=== PATIENT | female | born 1985 | race African-American/Black ===

== ENCOUNTER 2017-04-05 07:14 | Emergency (ER) | payer OTHER, MEDICAID ==
[~2017-04-05] VITALS: Ht 167.6 cm; Wt 85.0 kg
[~2017-04-05 07:14] MED LIST: ALBU6.7H INH; CEPH500C3 PO; PRENCAP6 PO; ZOFR4TAB3 SL
[2017-04-05 07:15] VITALS: BP 155/87; PULSE 89; RESP 14; TEMP 98.2; O2SAT 96
[2017-04-05] MEDS ORDERED: predniSONE 20 MG TAB PO ONE (08:15)
[2017-04-05] MEDS ORDERED: METHOCARBAMOL 500 MG TAB PO ONE (08:15)
[2017-04-05] MEDS ORDERED: RESP: ALBUTEROL 2.5 MG/IPRATROPIUM 0.5 MG NEB (SCH) INH ONE (08:15)
[2017-04-05] MEDS ORDERED: IBUPROFEN 800 MG TAB PO ONE (08:15)
[2017-04-05] MEDS ORDERED: BENZ100 PO (08:23)
[2017-04-05] MEDS ORDERED: ROBA500T PO (08:23)
[2017-04-05] MEDS ORDERED: VENTAER INH (08:23)
[2017-04-05] MEDS ORDERED: PRED-503 PO (08:23)
[2017-04-05] MEDS ORDERED: IBUP1TAB7 PO (08:23)
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
== END 2017-04-05 08:52 | disposition home or self-care (01) ==
LOC: NEPD 07:14
DX: B34.9 Viral infection, unspecified (principal); J45.901 Unspecified asthma with (acute) exacerbation; S16.1XXA Strain of muscle, fascia and tendon at neck level, initial encounter; S39.012A Strain of muscle, fascia and tendon of lower back, initial encounter; R51 Headache; V49.40XA Driver injured in collision with unspecified motor vehicles in traffic accident, initial encounter
CPT/HCPCS: 87081; 87804; 87880; 94664; 99283; J7512